=== PATIENT | female | born 1980 | race Two or more races ===

== ENCOUNTER 2023-05-20 14:01 | Emergency (ER) | payer SELFPAY ==
[~2023-05-20] VITALS: Ht 147.3 cm; Wt 61.3 kg
[2023-05-20 14:21] VITALS: BP 122/69; PULSE 94; RESP 20; TEMP 97.8; O2SAT 97
[2023-05-20] MEDS ORDERED: BACDST PO (17:31)
[2023-05-20] MEDS ORDERED: IBUP-1454 PO (17:31)
== END 2023-05-20 17:31 | disposition home or self-care (01) ==
LOC: ER 14:01
DX: N61.0 Mastitis without abscess (principal); Z88.8 Allergy status to other drugs, medicaments and biological substances